=== PATIENT | female | born 1990 | race Caucasian/White ===

== ENCOUNTER 2017-09-03 16:26 | Emergency (ER) | payer OTHER ==
[2017-09-03 16:32] VITALS: BP 112/58; TEMP 98.1; BMI 23.5
--- NOTE | 2017-09-03 17:22 | ED.PDOC ---
General ED Provider: Dr. LINDA HORNE Chief Complaint: Urinary Problem Stated Complaint: Severe LLQ abdominal Pain and Lt Flank Pain. SUDDEN ONSET APPROXIMATELY 1 HOUR AGO. FEELS LIKE A UTI WITH BLADDE PRESSURE AND BURNING. TREATED FOR UTI LAST MONTH AT PCP'S OFFICE. HX OF PREV UTI SIMILAR SYMPTOMS. Time Seen by Physician: 17:10 Mode of Arrival: Walk-In Information Source: Patient Exam Limitations: No limitations [facility] Provider[facility] Nursing and Triage Documentation Reviewed and Agree: Yes Reviewed sepsis parameters & appropriate labs ordered?: Yes System Inflammatory Response Syndrome: Not Applicable Sepsis Protocol: For patient's 13 years and over: Temp is 96.8 and below OR 101 and greater Pulse >90 BPM Resp >20/minute Acutely Altered Mental Status Are patient's symptoms suggestive of a new infection, such as: -Pneumonia -Skin, Soft Tissue -Endocarditis -UTI -Bone, Joint Infection -Implantable Device -Acute Abdominal Infection -Wound Infection -Meningitis -Blood Stream Catheter Infection -Unknown System Inflammatory Response Syndrome: Not Applicable Complaint Exam - UTI Female Complaint/Exam Patient Complains of: Reports: Painful urination Onset/Duration: 1 HOUR Symptoms Are: Worse Timing: Constant Initial Severity: Severe Current Severity: Moderate Location of Pain: Reports: Left, Flank, Suprapubic Associated Signs and Symptoms: Reports: Flank pain. Denies: Fever, Chills, Dyspareunia, Vaginal discharge : 1 Para: 1 Related History: Reports: Similar episode Related Surgical History: Reports: None CVA Tenderness: Yes Suprapubic Tenderness: Yes Differential Diagnoses: Bladder Dysfunction, Cystitis, Pyelonephritis, Ureteral Calculus Review of Systems - Review Of Systems Constitutional: Reports: No symptoms Eyes: Reports: No symptoms Ears, Nose, Mouth, Throat: Reports: No symptoms Respiratory: Reports: No symptoms Cardiac: Reports: No symptoms GI: Reports: No symptoms : Reports: No symptoms, Burning, Dysuria, Frequency, Flank pain, Pain, Urgency Musculoskeletal: Reports: No symptoms Skin: Reports: No symptoms Neurological: Reports: No symptoms Endocrine: Reports: No symptoms Hematologic/Lymphatic: Reports: No symptoms All Other Systems: Reviewed and Negative Past Medical History - Past Medical History Endocrine: Reports: None Cardiovascular: Reports: None Respiratory: Reports: None Hematological: Reports: None Gastrointestinal: Reports: None Genitourinary: Reports: UTI Neuro/Psych: Reports: None Musculoskeletal: Reports: None Cancer: Reports: None Last Menstrual Period: depo shot - Surgical History General Surgical History: Reports: None - Family History Family History: Reports: None - Social History Smoking Status: Never smoker Hx Substance Use: No Alcohol Screening: None Physical Exam - Physical Exam Appearance: Well-appearing, No pain distress, Well-nourished Ill-appearing: Moderate Pain Distress: Severe Eyes: LISA, EOMI, Conjunctiva clear ENT: Ears normal, Nose normal, Oropharynx normal Respiratory: Airway patent, Breath sounds clear, Breath sounds equal, Respirations nonlabored Cardiovascular: RRR, Pulses normal, No rub, No murmur GI/: Soft, No masses, Bowel sounds normal, No Organomegaly, Tender (LLQ AND LT FLANK) Musculoskeletal: Normal strength, ROM intact, No edema, No calf tenderness Skin: Warm, Dry, Normal color Neurological: Sensation intact, Motor intact, Reflexes intact, Cranial nerves intact, Alert, Oriented Psychiatric: Affect appropriate, Mood appropriate Critical Care Note - Critical Care Note Total Time (mins): 0 Course - Course Hematology/Chemistry: 09/03/17 17:35 09/03/17 17:35 Orders, Labs, Meds: Lab Review 09/03/17 09/03/17 09/03/17 17:20 17:35 17:35 WBC 13.96 H RBC 4.64 Hgb 14.4 Hct 39.9 MCV 86.0 MCH 31.0 MCHC 36.1 H RDW Coeff of Jose Carlos 12.1 Plt Count 233 Immature Gran % (Auto) 0.5 Neut % (Auto) 76.9 Lymph % (Auto) 17.2 Hart % (Auto) 4.6 Eos % (Auto) 0.4 Baso % (Auto) 0.4 Immature Gran # (Auto) 0.1 Neut # (Auto) 10.8 H Lymph # (Auto) 2.4 Hart # (Auto) 0.6 Eos # (Auto) 0.1 Baso # (Auto) 0.1 Sodium 142 Potassium 3.9 Chloride 109 H Carbon Dioxide 21 Anion Gap 15.9 BUN 16 Creatinine 0.95 Estimated GFR (MDRD) 72.00 BUN/Creatinine Ratio 16.84 Glucose 120 H Calcium 9.2 Total Bilirubin 0.8 AST 20 ALT 14 Alkaline Phosphatase 63 Total Protein 7.4 Albumin 4.3 Globulin 3.1 Albumin/Globulin Ratio 1.39 Serum , Qual Urine Color Yellow Urine Clarity Clear Urine pH 5.5 Ur Specific [place] >=1.030 Urine Protein 1+ Urine Glucose (UA) Negative Urine Ketones 1+ Urine Blood 1+ Urine Nitrite Negative Urine Bilirubin 1+ Urine Urobilinogen 0.2 Ur Leukocyte Esterase Negative Ur Squamous Epith Cells 2-5 Calcium Oxalate Crystal 4+ 09/03/17 17:35 WBC RBC Hgb Hct MCV MCH MCHC RDW Coeff of Jose Carlos Plt Count Immature Gran % (Auto) Neut % (Auto) Lymph % (Auto) Hart % (Auto) Eos % (Auto) Baso % (Auto) Immature Gran # (Auto) Neut # (Auto) Lymph # (Auto) Hart # (Auto) Eos # (Auto) Baso # (Auto) Sodium Potassium Chloride Carbon Dioxide Anion Gap BUN Creatinine Estimated GFR (MDRD) BUN/Creatinine Ratio Glucose Calcium Total Bilirubin AST ALT Alkaline Phosphatase Total Protein Albumin Globulin Albumin/Globulin Ratio Serum , Qual Negative Urine Color Urine Clarity Urine pH Ur Specific [place] Urine Protein Urine Glucose (UA) Urine Ketones Urine Blood Urine Nitrite Urine Bilirubin Urine Urobilinogen Ur Leukocyte Esterase Ur Squamous Epith Cells Calcium Oxalate Crystal Orders Category Date Time Status IV [ED IV/MEDIPORT/POWERPORT] .ONCE EMERGENCY 09/03/17 17:22 Active CBC W/ AUTO DIFF Stat LAB 09/03/17 17:35 Completed CMP [COMPREHENSIVE METABOLIC PANEL] Stat LAB 09/03/17 17:35 Completed HCG QUALITATIVE [SERUM ] Stat LAB 09/03/17 17:35 Completed UA [URINALYSIS C & S IF INDICATED] Stat LAB 09/03/17 17:20 Completed 0.9 % Sodium Chloride [Saline Flush] MEDS 09/03/17 17:22 Ordered 1 syr IVF PRN PRN Ketorolac Tromethamine [Toradol] MEDS 09/03/17 17:24 Discontinued 30 mg IVP ONCE STA Ondansetron HCl/Pf [Zofran 4 mg/2 ml] MEDS 09/03/17 17:24 Discontinued 4 [address] IVP ONCE STA CT ABDOMEN/PELVIS WO CONTRAST Stat RADS 09/03/17 18:37 Completed Medications Generic Name Dose Route Start Last Admin Trade Name Freq PRN Reason Stop Dose Admin Sodium Chloride 1 syr 09/03/17 17:22 09/03/17 17:45 Saline Flush IVF 1 syr PRN PRN Administration To flush IV Discontinued Medications Generic Name Dose Route Start Last Admin Trade Name Frealmas PRN Reason Stop Dose Admin Ketorolac Tromethamine 30 mg 09/03/17 17:24 09/03/17 17:48 Toradol IVP 09/03/17 17:25 30 mg ONCE STA Administration Ondansetron HCl 4 mg 09/03/17 17:24 09/03/17 17:46 Zofran 4 Mg/2 Ml IVP 09/03/17 17:25 4 mg ONCE STA Administration Vital Signs: Temp Pulse Resp BP Pulse Ox 09/03/17 16:27 98.1 F 52 L 20 112/58 L 97 Departure - Departure Time of Disposition: 19:40 Disposition: HOME SELF-CARE Discharge Problem: Ureterolithiasis Instructions: Kidney Stones (ED), How to Strain Your Urine (ED) Condition: Good Pt referred to PMD for follow-up: Yes (DR WILLIS AND UROLOGIST DR ESCALONA IN [place]) IPMP verified?: No Additional Instructions: STRAIN ALL URINE TAKE FLOMAX AT HOME 1 DAILY UNTIL STONE PASSES THEN STOP FLOMAX FOLLOW UP WITH UROLOGIST AT [place] [facility] DR CASTILLO RETURN TO ER IF ACUTE EVENT OCCURS Allergies/Adverse Reactions: Allergies No Known Allergies Allergy (Verified 09/03/17 16:32) Home Medications: Ambulatory Orders Medroxyprogesterone Acetate [Depo-Provera] 150 mg IM DIRECTED 01/02/16 Hydrocodone Bit/Acetaminophen [[place] 5-325] 1 each PO Q4HR #5 tablet 09/03/17 Tamsulosin HCl [Flomax] 0.4 mg PO DAILY #5 cap.er.24h 09/03/17 Disposition Discussed With: Patient, Family
[2017-09-03] MEDS ORDERED: ZOFRAN 4 MG/2 ML IVP STA (17:24)
[2017-09-03] MEDS ORDERED: TORADOL IVP STA (17:24)
--- NOTE | 2017-09-03 19:28 | CT ---
EXAM: CT of the abdomen and pelvis without contrast. HISTORY: Left lower quadrant abdominal pain. PROCEDURE: Contiguous axial CT images of the abdomen and pelvis without contrast with coronal and sa gittal reformats. FINDINGS: The liver, gallbladder, pancreas, spleen and adrenal glands are normal in appearance. Ther e is a 3 mm calcification in the distal left ureter at the level of the ureterovesicle junction with mild left hydronephrosis and hydroureter. There are nonobstructive calcifications in both kidneys me asuring up to 3 mm. The abdominal aorta is normal in appearance. The visualized loops of bowel and ap pendix are normal in appearance. No free fluid or free air in the abdomen or pelvis. The bladder is m inimally filled which limits the evaluation. The uterus is unremarkable. The bones and soft tissues are unremarkable. Impression: Left ureterolithiasis as described with mild left hydronephrosis and hydroureter. Nonobstructive bilateral nephrolithiasis.
[2017-09-03] MEDS ORDERED: FLOMAX PO STA (19:48)
== END 2017-09-03 20:10 | disposition home or self-care (01) ==
LOC: ED 16:26
DX: N20.1 Calculus of ureter (principal); Z87.440 Personal history of urinary (tract) infections
CPT/HCPCS: 36415; 80053; 81001; 84703; 85025; 96374; 96375; 99283